=== PATIENT | female | born 1940 | race Caucasian/White ===

== ENCOUNTER 2019-12-03 12:51 | Outpatient (CLI) | payer MEDICARE, OTHER, SELFPAY ==
--- NOTE | ~2019-12-03 | XR_ITS ---
XR chest 2V 12/03/2019 13:54 Indication: Pneumonia. Procedure: 2 view chest Comparison: 08/16/2004 Findings: Heart size normal. Lingular airspace disease. There are emphysematous changes. No pleural e ffusion, edema or pneumothorax. Impression: 1: Lingular airspace disease, differential diagnosis includes atelectasis, scarring and pneumonia. Reviewed, dictated and finalized at location A. CAL RECEPTION SPECIALIST Impression: 1: Lingular airspace disease, differential diagnosis includes atelectasis, scar ring and pneumonia.
== END 2019-12-03 12:52 | disposition home or self-care (01) ==
LOC: ANHIMG 13:01
PROVIDERS: PCP Family Medicine; Visit Provider Family Medicine
DX: J18.9 Pneumonia, unspecified organism (principal); R91.8 Other nonspecific abnormal finding of lung field
CPT/HCPCS: 71046

== ENCOUNTER 2020-04-01 12:39 | Outpatient (CLI) | payer MEDICARE, OTHER, SELFPAY ==
--- NOTE | 2020-04-06 13:33 | WPDPFTINT ---
PFT Interpretation PFT Interpretation: DOS: 04/01/2020 REQUESTING: Dr Kelle Burch REASON FOR TESTING: Shortness of breath PULMONARY FUNCTION TESTS [place] results are reproducible. Spirometry: FB will be 1 moderately reduced 62%, 1.03 L. FVC is normal 89%. FEV 1% is decreased 47% consistent with airflow obstruction. There is a 25% increase in FEV1 after bronchodilator therapy. Lung volumes: TLC 118%, normal. RV increased 163%, severe air trapping. Airway resistance is 210%. Diffusion: DLCO severely decreased 23%. Flow volume loop: Severe scooping of the expiratory limb, improved with bronchodilator. IMPRESSION: Moderate obstructive ventilatory impairment with good response to bronchodilator, severe air trapping, increased airway resistance and extremely severe diffusion impairment. In the setting of tobacco use, this is consistent with moderate emphysema. Low diffusion is a feature of emphysema. Her DLCO is low even for emphysema. This may be due to another condition such as anemia, a secondary process such as ILD, or chronic thromboembolic disease. Ciara Hastings MD
== END 2020-04-01 12:40 | disposition home or self-care (01) ==
PROVIDERS: PCP Family Medicine; Visit Provider Family Medicine
DX: J44.9 Chronic obstructive pulmonary disease, unspecified (principal); R94.2 Abnormal results of pulmonary function studies
CPT/HCPCS: 94060; 94726; 94729

== ENCOUNTER 2020-06-08 10:00 | Outpatient (CLI) | payer MEDICARE, OTHER, SELFPAY ==
[2020-06-08] VITALS (7 sets, daily range): PULSE 66–90; O2SAT 85–91
--- NOTE | 2020-06-08 10:45 | HOMEO2EVAL ---
Home Oxygen Evaluation RC: Home Oxygen (O2) Evaluation Start: 06/08/20 10:39 Freq: Status: Active Protocol: RPE Activity Type Activity Date Activity User E-Sign Co-Sign Detail Recorded Client Recorded Date Recorded By Document 06/08/20 10:00 [email or web address] [email or web address] 06/08/20 10:45 DJO Document 06/08/20 10:05 [email or web address] [email or web address] 06/08/20 10:45 DJO Document 06/08/20 10:10 [email or web address] [email or web address] 06/08/20 10:45 DJO Document 06/08/20 10:15 [email or web address] [email or web address] 06/08/20 10:45 DJO Document 06/08/20 10:20 [email or web address] [email or web address] 06/08/20 10:45 DJO Document 06/08/20 10:25 [email or web address] [email or web address] 06/08/20 10:45 DJO Document 06/08/20 10:35 [email or web address] [email or web address] 06/08/20 10:45 DJO 06/08/20 06/08/20 06/08/20 10:00 10:05 10:10 Home O2 Evaluation Test Phase Resting Resting Resting Oxygen Delivery Room Air Nasal Cannula Nasal Cannula Oxygen Flow Rate (L/min) 1 2 Pulse Oximetry (90-100 %) 85 L 86 L 87 L Pulse Rate (60-100 beats/min) 76 74 72 Activity Tolerance Rating of Perceived Dyspnea (PD) Ambulation Distance (feet) Home Oxygen Evaluation Comments PT HAS HOME O2 AT 3LPM Treatment Charges O2 Evaluation 06/08/20 06/08/20 06/08/20 10:15 10:20 10:25 Home O2 Evaluation Test Phase Resting Exercise Exercise Oxygen Delivery Nasal Cannula Nasal Cannula Nasal Cannula Oxygen Flow Rate (L/min) 3 3 4 Pulse Oximetry (90-100 %) 91 87 L 90 Pulse Rate (60-100 beats/min) 68 88 90 Activity Tolerance Good Rating of Perceived Dyspnea (PD) +2 Mild, Some Difficulty, Noticeable to the Observer Ambulation Distance (feet) 750 Home Oxygen Evaluation Comments Treatment Charges 06/08/20 10:35 Home O2 Evaluation Test Phase Resting Oxygen Delivery Nasal Cannula Oxygen Flow Rate (L/min) 3 Pulse Oximetry (90-100 %) 90 Pulse Rate (60-100 beats/min) 66 Activity Tolerance Rating of Perceived Dyspnea (PD) Ambulation Distance (feet) Home Oxygen Evaluation Comments Treatment Charges
== END 2020-06-08 10:01 | disposition home or self-care (01) ==
LOC: ANHPFT 10:01
PROVIDERS: PCP Family Medicine; Visit Provider Nurse Practitioner Family
DX: J44.9 Chronic obstructive pulmonary disease, unspecified (principal)
CPT/HCPCS: 94618

== ENCOUNTER 2020-06-17 10:17 | Outpatient (CLI) | payer MEDICARE, OTHER, SELFPAY ==
--- NOTE | ~2020-06-17 | XR_ITS ---
EXAMINATION: XR barium swallow modified DATE: 06/17/2020 11:01 INDICATION: Dysphagia. TECHNIQUE: The patient was given barium-containing material of multiple consistencies to swallow by spencer mccarty speech pathologist while I performed fluoroscopy. Dose-area product was 1.059 Gy-cm2. 1.5 minutes fluoroscopy time FINDINGS: Oral Preparatory Stage: Normal Oral Stage: Normal Pharyngeal Phase: Normal Cervical/Esophageal Stage: Normal IMPRESSION: Modified esophagram findings as above. Please refer to the speech therapy report for spec [facility] recommendations. Reviewed, dictated and finalized at Location A. Reviewed, dictated and finalized at location A. IMPRESSION: Modified esophagram findings as above. Please refer to the speech t herapy report for specific recommendations.
--- NOTE | 2020-06-18 17:30 | STOPEVAL ---
MODIFIED BARIUM SWALLOW EVALUATION: Thank you for referring Mami Downing to [facility].? Attending Provider: MD MO Spence Outpatient Evaluation: [facility] Start: 06/18/20 17:16 Freq: Status: Active Protocol: Document 06/17/20 10:00 BECHERERT (Rec: 06/18/20 17:30 BECHERERT [email or web address]) Therapy Assessment Status Assessment Status Assessment Status Evaluation Outpatient Past Medical History Past Medical History Source of Past Medical History Patient Neurological History Hx Cerebrovascular Accident (CVA) Yes: TIA; on warfarin Hx Transient Ischemic Attacks (TIA) Yes Cardiovascular History Hx Cardiac Catheterization Yes Hx Hypercholesterolemia Yes Hx Hypertension Yes Hx Myocardial Infarction Yes Respiratory History Hx Pneumonia Yes Gastrointestinal History Hx Appendectomy Yes Genitourinary History Hx Genitourinary Disorders No Significant History Musculoskeletal History Hx Arthritis Yes Hematological History Hx Hematological Disorders No Significant History Endocrine History Hx Hypothyroidism Yes HEENT History Hx HEENT Disorders No Significant History Integumentary History Hx Skin Disorders No Significant History Reproductive History Hx Reproductive Disorders No Significant History Psychosocial History Hx Psychiatric Disorders No Significant History Pain History History of Any Previous or Ongoing No Significant History Instance of Pain Anesthesia History Hx Anesthesia Reactions No Significant History Prior Level of Function Prior Swallow Level Prior Intake Method Oral Prior Diet Regular (Level 7 Diet) Prior Liquid Consistency Thin (Level 0 Diet) Pain Assessment Timing of Pain Assessment Timing of Pain Assessment Assessment Self Report Self Report Pain Level 0 Pain Score Pain Score 0: Self Report Modified Barium Swallow Evaluation Recent Swallowing History Reports Dysphagia Yes: pills & food get stuck History of Dysphagia No Duration of Dysphagia 8 months Other Factors Impacting Dysphagia None History of Pneumonia Yes Reported Difficult Consistencies Pills,Solids Intake Method Prior to Swallow Oral Evaluation Diet Prior to Swallow Evaluation Regular, Level 7 Liquid Consistency Prior to Swallow Thin (0) Evaluation Consistency Thin Uncontrolled 2 Method of Presentation Straw Oral Preparatory Symptoms None Oral Phase Symptoms None Pharyngeal Phase Symptoms Within Functional Limits, Laryngeal Penetration Severity of Vallecular Residue None - 0% No Residue Severity of Pyriform Sinus Residue None - 0% No
== END 2020-06-17 10:18 | disposition home or self-care (01) ==
PROVIDERS: PCP Family Medicine; Visit Provider Internal Medicine Critical Care Medicine
DX: R13.10 Dysphagia, unspecified (principal)
CPT/HCPCS: 92611

== ENCOUNTER 2020-07-07 13:26 | Outpatient (CLI) | payer MEDICARE, OTHER, SELFPAY ==
--- NOTE | 2020-07-07 13:33 | ECHO_ITS ---
Patient Info Name: Mami Downing Age: 80 years : 1940 Gender: Female Ht: 63 in Wt: 171 lbs BSA: 1.88 m2 HR: 65 bpm BP: 136 / 72 mmHg Heart Rhythm: Sinus Arrhythmia Technical Quality: Good Exam Date: 07/07/2020 1:55 PM Exam Location: [facility] Pulmonary Patient Status: Outpatient Admit Date: 07/07/2020 Staff Ordering Physician: Ciara Hastings MD Email Specialist: John Adam RDCS Attending Provider: Ciara Hastings MD Referring Physician: Darling LOUIS; Exam Type: CA echo doppler color flow Study Info Indications R06.02 - Shortness of breath Complete two-dimensional, color flow and Doppler transthoracic echocardiogram is performed. History/Risk Factors Shortness of breath and hypoxemia. Summary 1. Complete two-dimensional, color flow and Doppler transthoracic echocardiogram is performed. 2. Left ventricular chamber dimension is normal. 3. Left ventricular systolic function is normal, estimated at 60-65%. 4. There is mildly increased left ventricular wall thickness. 5. The left ventricular diastolic function is grade I diastolic dysfunction. 6. E/e' 14 is mildly elevated. 7. Left atrial chamber dimension is mildly enlarged. 8. There is moderate aortic valve sclerosis. 9. There is trace aortic valve regurgitation. 10. There is trivial pericardial effusion. Left Ventricle E/e' 14 is mildly elevated. Left ventricular chamber dimension is normal. Left ventricular systolic function is normal, estimated at 60-65%. There is mildly increased left ventricular wall thickness. The left ventricular diastolic function is grade I diastolic dysfunction. Right Ventricle Right ventricular chamber dimension is normal. Right ventricular systolic function is normal. Left Atria Left atrial chamber dimension is mildly enlarged. Right Atria Right atrial chamber dimension is normal. Aortic Valve The aortic valve is trileaflet. There is moderate aortic valve sclerosis. There is no aortic valve stenosis. There is trace aortic valve regurgitation. Pulmonic Valve There is no pulmonic regurgitation. Mitral Valve There is no mitral valve stenosis. There is no mitral valve regurgitation. Tricuspid Valve There is no tricuspid valve regurgitation. Pericardium/Pleural There is trivial pericardial effusion. Inferior Vena Cava Normal inferior vena cava with >50% collapse upon inspiration consistent with normal right atrial pressure, 5 mmHg. Aorta The aortic root size at the sinus of Valsalva is normal. Left Ventricular Outflow Tract Name Value Normal LVOT 2D LVOT Diameter 2.0 cm LVOT Doppler LVOT Peak Gradient 10 mmHg LVOT Mean Gradient 5 mmHg LVOT VTI 45 cm LVOT VTI/AV VTI Ratio 0.8 LVOT Stroke Volume 140 ml LVOT CO 8.5 l/min LVOT CI 4.5 l/min/m2 Mitral Valve Name
== END 2020-07-07 13:27 | disposition home or self-care (01) ==
PROVIDERS: PCP Family Medicine; Visit Provider Internal Medicine Critical Care Medicine
DX: R09.02 Hypoxemia (principal); I35.1 Nonrheumatic aortic (valve) insufficiency
CPT/HCPCS: 93306

== ENCOUNTER 2020-12-09 11:00 | Emergency (ER) | payer MEDICARE, OTHER, SELFPAY ==
[2020-12-09] VITALS (21 sets, daily range): BP systolic 114–139; BP diastolic 62–83; PULSE 0–78; RESP 12–29; TEMP 36.7; O2SAT 90–97
--- NOTE | ~2020-12-09 | XR_ITS ---
EXAMINATION: XR chest 1V portable EXAM DATE: 12/09/2020 12:04 INDICATION: Shortness of breath, history of atrial fibrillation. TECHNIQUE: Portable AP frontal chest x-ray was obtained. Comparison is made to prior examination from 12/03/2019. FINDINGS: Moderate chronic hyperinflation. There is pulmonary vascular congestion. Some ill-defined b asilar opacities, possible developing basilar edema or pneumonia. Mid and upper lung zones are clear. No pneumothorax. The bones are osteopenic. There are bony degenerative changes. IMPRESSION: 1. Cardiomegaly, congestion. 2. Possible developing bibasilar edema or infection. Reviewed, dictated and finalized at location B. R SUPPLY ENGINEER
--- NOTE | ~2020-12-09 | CT_ITS ---
EXAMINATION: CTA chest PE protocol EXAM DATE: 12/09/2020 14:17 INDICATION: Shortness of breath, hemoptysis. TECHNIQUE: Spiral CTA of the chest (pulmonary arteries) was performed with 100 cc Omnipaque 350 intr avenous contrast injection. Images were acquired during the pulmonary arterial phase. Coronal maxi mum intensity projection 3D-reconstructions were created by the technologist on dedicated workstation . Axial, coronal and sagittal reformatted images were reviewed. The dose-length product (DLP) for t his examination was 544.01 mGy-cm. The exposure was tailored according to patient size (auto mA exp osure control), and iterative reconstruction (ASIR) was used as additional dose reduction technique. Comparison is made to prior examination from 11/12/2019. FINDINGS: The main, central pulmonary arteries are dilated which can indicate elevated pulmonary jennifer rial pressure, pulmonary arterial hypertension. There are no pulmonary emboli in the 1st through 3rd order (central and interlobar) pulmonary arteries. Some loss of attenuation in the segmental pulmon yenny arteries due to respiratory motion, but no intraluminal filling defects suspected. No thoracic aortic dissection. There is moderate emphysema. There is dependent predominant interlobular septal thickening which coul d be edema and/or atelectasis. Some component of interstitial lung disease is also possible. There is hyperinflation. Pleural-based lingular density likely scarring unchanged. There are no pleural or p ericardial effusions. Tracheobronchial tree is patent. Several borderline sized mediastinal lymph nodes unchanged, probably reactive. There is no pneumothorax. There is mild cardiomegaly. There is mild to moderate coronary arterial calcification, arterial sclerosis. Upper abdomen is unremarkab le. There is thoracic spondylosis without osteoblastic or osteolytic lesions identified. IMPRESSION: 1. No pulmonary emboli or confluent consolidation. 2. Dependent interlobular septal thickening, atelectasis an/or edema. Can't exclude some chronic int erstitial lung disease. 3. Cardiomegaly. Pulmonary arterial dilation. 4. Emphysema and hyperinflation. 5. Borderline mediastinal lymphadenopathy, probably reactive. Reviewed, dictated and finalized at location B. WEAVER IMPRESSION: 1. No pulmonary emboli or confluent consolidation. 2. Dependent interlobular septal thickening, atelectasis an/or edema. Can't ex clude some chronic interstitial lung disease. 3. Cardiomegaly. Pulmonary arterial dilation. 4. Emphysema and hyperinflation. 5. Borderline mediastinal lymphadenopathy, probably reactive.
--- NOTE | 2020-12-09 11:32 | ECG_ITS ---
Measurements Intervals [place] Rate: 71 P: 68 ME: 174 QRS: 23 QRSD: 93 T: 50 QT: 384 QTc: 418 Interpretive Statements SINUS RHYTHM LOW QRS VOLTAGE- LIMB LEADS BORDERLINE R WAVE PROGRESSION, ANTERIOR LEADS MINIMAL Q WAVES- INFERIOR LEADS BASELINE WANDER- I, II, AVR, AVF BORDERLINE ECG Electronically Signed On 12-09-2020 12:04:59 EXPOSURE MACHINE OPERATOR by Ben Odom D.O.
[2020-12-09 11:44] LABS: Basophils Absolute Auto 0.1 K/mm3 (0.0-0.1); Basophils Percent Auto 0.8 % (0.2-1.2); Eosinophils Absolute Auto 0.2 K/mm3 (0-0.3); Eosinophils Percent Auto 2.7 % (0-4.4); Hematocrit 39.1 % (37.0-47.0); Immature Granulocyte Absolute 0.04 K/mm3 (0.00-0.031); Immature Granulocyte Percent A 0.5 % (0-0.5); Lymphocytes Absolute Auto 1.76 K/mm3 (0.9-3.2); Lymphocytes Percent Auto 20.7 % (18.3-44.2); Mean Corpuscular HGB Conc 33.2 g/dl (32-36); Mean Corpuscular Hemoglobin 33.2 pg (26-34); Mean Platelet Volume 10.2 fl (7.4-10.4); Monocytes Absolute Auto 0.8 K/mm3 (0.1-0.6); Monocytes Percent Auto 9.2 % (2.6-8.5); Neutrophils Absolute Auto 5.6 K/mm3 (1.3-6.7); Neutrophils Percent Auto 66.1 % (45.5-73.1); Platelet Count Result 251 k/mm3 (150-375); Red Blood Count 3.91 M/mm3 (4.2-5.4); Red Cell Distribution Width 13.1 % (11.5-14.5); White Blood Count 8.5 K/mm3 (4.5-10.0)
[2020-12-09 11:54] LABS: INR 2.5; Prothrombin Time 27.5 Seconds (11.1-14.7)
[2020-12-09 11:56] LABS: Partial Thromboplastin Time 49.1 SECONDS (22.3-36.8)
[2020-12-09 12:02] LABS: D Dimer 0.44 ug/mL (<0.48)
[2020-12-09 12:28] LABS: Alanine Aminotransferase 17 U/L (4-35); Albumin Level 3.8 g/dL (3.5-5.1); Alkaline Phosphatase 107 U/L (38-126); Anion Gap 6 mmol/L (8-16); Aspartate Amino Transferase 33 U/L (14-36); Bilirubin,Total 0.8 mg/dL (0.2-1.3); Blood Urea Nitrogen 14 mg/dL (7-17); Calcium 9.8 mg/dL (8.4-10.2); Carbon Dioxide 28 mmol/L (22-30); Chloride 106 mmol/L (98-107); Estimated Glomerular Filt Rate 53; Glucose 117 mg/dL (65-105); Potassium 4.5 mmol/L (3.4-5.0); Sodium 140 mmol/L (137-145)
[2020-12-09 12:40] LABS: NT Pro B Type Natriuretic Pept 835 PG/ML (5-100)
--- NOTE | 2020-12-09 13:01 | ED.SOB ---
HPI - SOB/Dyspnea General Chief Complaint: Shortness of Breath/Dyspnea Stated Complaint: SHORT OF BREATH ON O2 Time Seen by Provider: 12/09/20 11:09 Source: patient Mode of arrival: ambulatory Limitations: no limitations History of Present Illness HPI Narrative: Patient is an 80 year old female with history of COPD, oxygen dependence 3L NC, atrial fibrillation who presents for evaluation of worsening shortness of breath. Patient reports that she has been having worsening shortness of breath over past 2-3 months. She reports worsening cough. She is short of breath with exertion for 3 months. She denies fever or chills. She denies chest pain. She reports she is coughing up a small amount of blood due to her nose being dry from oxygen. Related Data Allergies Allergy/AdvReac Type Severity Reaction Status Date / Time doxycycline Allergy Unknown Hives Verified 09/29/20 14:13 indomethacin Allergy Unknown Unknown Verified 09/29/20 14:13 Review of Systems Review of Systems: All systems reviewed & are unremarkable except as noted in HPI and below Constitutional: Constitutional: Denies chills and Denies fever(s) ENT: Reports epistaxis and Denies nasal congestion Cardiovascular: Cardiovascular: Denies chest pain Respiratory: Respiratory: Reports cough and Reports dyspnea (chronic with exertion) Gastrointestinal: Gastrointestinal: Denies abdominal pain, Denies diarrhea, Denies nausea and Denies vomiting Genitourinary: Genitourinary: Denies hematuria Neurologic: Denies headache(s) FOR[facility]LY [facility], [facility] Past Medical History Medical History (Updated 12/09/20 @ 15:48 by Rachael Curran MD) A-fib Anxiety Atrial fibrillation Cataracts, bilateral Chronic hypoxemic respiratory failure Dependence on supplemental oxygen Difficulty swallowing Dilatation of pulmonic artery Foot fracture, right GERD (gastroesophageal reflux disease) H/O: HTN (hypertension) History of heart attack History of pneumonia Hx of transient ischemic attack (TIA) Hypercholesteremia Hypothyroid Nocturnal leg cramps Osteomyelitis Shingles Surgical History Surgical History H/O breast biopsy History of appendectomy History of bladder surgery Hx of bilateral cataract extraction Hx of cardiac cath Hx of tubal ligation Family History Family History Father Acute myocardial infarction Grandparent Acute myocardial infarction Sibling Acute myocardial infarction Social History Social History Smoking packs per day: 0.5 Smoking cigarettes per day: 10.0 Years smoked: 60 Smoking pack-years: 30.00 Smoking status: Heavy tobacco smoker Tobacco type: cigarettes Second hand tobacco smoke exposure: Yes Smoking end date: 11/06/19 Alcohol intake: never Substance use: never Gender identity (if verbalized by the patient): Female Spiritual care concerns: No Agree to blood products: Yes Exam Const: General: no acute distress and alert Orientation/consciousness: patient oriented x3 HENMT: Head: normocephalic and atraumatic General nose exam: Other nasal findings present (dry nasal discharge, crusted speck of blood in left nare) Face and sinus: face symmetric Mouth: Yes oropharynx normal Eyes: EOM: EOMs intact bilaterally Chest: Chest palpation & inspection: normal inspection of the chest Resp: Effort & Inspection: normal respiratory effort and no retractions Auscultation: clear to auscultation bilaterally Cardio: Rate: regular rate Rhythm: regular rhythm Heart sounds: no murmurs GI: GI Palp: Yes Soft to palpation, No Tenderness to palpation present (GI) and No Guarding due to palpation present (GI) Auscultation: normal bowel sounds Skin: General skin exam: normal color Rashes: no rashes Neuro: General: patient oriented x3, moves all extremities and CN's I
[2020-12-09 13:47] LABS: Alveolar/Arterial O2 Gradient 104.1 mmHg; Base Excess ABG -0.5 mEq/l (+/-2.0); Fractional Inspired Oxygen 32 %; HCO3 ABG 24.1 mEq/l (22.0-26.0); Oxygen Content ABG 18.3 %vol (16.0-22.0); Oxygen Saturation ABG 95.6 % (95.0-100.0); Oxyhemoglobin 94.3 % THb (90.0-100.0); PCO2 ABG 39.6 mmHg (35.0-45.0); PO2 ABG 77.7 mmHg (80.0-100.0); PO2 FiO2 Ratio Arterial Blood 2.43 %; Total Hemoglobin 13.8 g/dL (12.0-18.0); pH ABG 7.403 (7.350-7.450)
[2020-12-09 13:50] LABS: Device NASAL CANNULA; Modified Allen's Test Pass; Site Drawn RIGHT RADIAL
== END 2020-12-09 16:16 | disposition home or self-care (01) ==
PROVIDERS: Emergency Provider General Practice
DX: J96.11 Chronic respiratory failure with hypoxia (principal); Z99.81 Dependence on supplemental oxygen; J44.9 Chronic obstructive pulmonary disease, unspecified; I48.91 Unspecified atrial fibrillation; F41.9 Anxiety disorder, unspecified; K21.9 Gastro-esophageal reflux disease without esophagitis; I10 Essential (primary) hypertension
CPT/HCPCS: 36415; 36600; 71045; 71275; 80053; 82805; 83880; 84484; 85025; 85380; 85610; 85730; 87040; 87804; 93005; 99284; Q9967

== ENCOUNTER 2021-02-05 12:34 | Outpatient (CLI) | payer MEDICARE, OTHER, SELFPAY ==
[2021-02-05] VITALS (8 sets, daily range): O2SAT 80–90
--- NOTE | 2021-02-05 13:04 | ECHO_ITS ---
Patient Info Name: Mami Downing Age: 81 years : 1940 Gender: Female Ht: 64 in Wt: 171 lbs BSA: 1.90 m2 HR: 77 bpm BP: 146 / 88 mmHg Technical Quality: Good Exam Date: 02/05/2021 2:07 PM Exam Location: [facility] Pul[facility] Patient Status: Outpatient Admit Date: 02/05/2021 Staff Ordering Physician: Gerson Cantu MD Electrolysis Needle Operator: Gomez Naylor RDCS, RT Attending Provider: Gerson Cantu MD Referring Physician: Pepe BORJA; Exam Type: CA echo doppler w bubble study Study Info Indications J96.91 - Respiratory failure, unspecified with hypoxia Complete two-dimensional, color flow and Doppler transthoracic echocardiogram is performed with agitated saline. Contrast/Agitated Saline Contrast/Ag. Saline: Agitated Saline Amount: --- ml Administered By: Ileana Shin, RN Summary 1. Left ventricular chamber dimension is normal. 2. Left ventricular systolic function is normal, estimated at 60-65%. 3. There is moderately increased left ventricular wall thickness. 4. The left ventricular diastolic function is grade I diastolic dysfunction. 5. E/e' 15 is elevated. 6. Right ventricular chamber dimension is moderately enlarged. 7. Right ventricular systolic function is mildly reduced, however, TAPSE is normal at 1.9 cm.. 8. Right atrial chamber dimension is mildly enlarged. 9. There is minimal mild aortic valve stenosis based on a peak velocity of 188 cm/s, mean gradient of 8 mmHg, and aortic valve area of 2.3 cm2. 10. There is moderate aortic valve sclerosis. 11. There is mild tricuspid valve regurgitation. 12. Severe pulmonary hypertension, estimated pulmonary arterial systolic pressure is 95 mmHg. 13. There is mild pulmonic regurgitation. 14. Dilated inferior vena cava with >50% collapse upon inspiration consistent with elevated right atrial pressure, 10 mmHg. 15. There is trivial pericardial effusion. Left Ventricle E/e' 15 is elevated. Left ventricular chamber dimension is normal. Left ventricular systolic function is normal, estimated at 60-65%. There is moderately increased left ventricular wall thickness. The left ventricular diastolic function is grade I diastolic dysfunction. Right Ventricle Right ventricular systolic function is mildly reduced, however, TAPSE is normal at 1.9 cm.. Right ventricular chamber dimension is moderately enlarged. Left Atria Left atrial chamber dimension is normal. Right Atria Agitated saline injection with and without valsalva maneuver opacified right sided cardiac chambers without shunt to left sided cardiac chambers. Right atrial chamber dimension is mildly enlarged. Atrial Septum Intact interatrial septum visualized by agitated saline imaging. Aortic Valve The aortic valve is not well visualized. Cannot determine number of aortic valve leaflets. There is minimal mild aortic valve stenosis based on a peak velocity of 188 cm/s, mean gradient of 8 mmHg, and aortic valve area of 2.3 cm2. There is moderate aortic valve sclerosis. There is no aortic valve regurgitation. Pulmonic Valve There is mild pulmonic regurgitation. Mitral Valve There is no mitral valve stenosis. There is no mitral valve regurgitation. Tricuspid Valve There is mild tricuspid valve regurgitation. Severe pulmonary hypertension, estimated pulmonary arterial systolic pressure is 95 mmHg. Pericardium/Pleural There is trivial pericardial effusion. Inferior Vena Cava Dilated infe
--- NOTE | 2021-02-05 14:13 | PCRCNOTE ---
Pt requires 3Liter Oxymizer resting and 6Liter Oxymizer with exertion
--- NOTE | 2021-02-05 14:31 | HOMEO2EVAL ---
Home Oxygen Evaluation RC: Home Oxygen (O2) Evaluation Start: 02/05/21 14:07 Freq: Status: Active Protocol: RPE Activity Type Activity Date Activity User E-Sign Co-Sign Detail Recorded Client Recorded Date Recorded By Document 02/05/21 13:30 MARII [email or web address] 02/05/21 14:13 MARII Document 02/05/21 13:31 MARII [email or web address] 02/05/21 14:13 MARII Document 02/05/21 13:32 MARII [email or web address] 02/05/21 14:13 MARII Document 02/05/21 13:34 MARII [email or web address] 02/05/21 14:13 MARII Document 02/05/21 13:40 MARII [email or web address] 02/05/21 14:13 MARII Document 02/05/21 13:41 MARII [email or web address] 02/05/21 14:13 MARII Document 02/05/21 13:45 MARII [email or web address] 02/05/21 14:13 MARII Document 02/05/21 13:50 MARII [email or web address] 02/05/21 14:13 MARII 02/05/21 02/05/21 02/05/21 13:30 13:31 13:32 Home O2 Evaluation Test Phase Resting Resting Resting Oxygen Delivery Room Air Oxymizer Oxymizer Oxygen Flow Rate (L/min) 1 2 Pulse Oximetry (90-100 %) 80 L 80 L 86 L Treatment Charges O2 Evaluation - Outpatient 02/05/21 02/05/21 02/05/21 13:34 13:40 13:41 Home O2 Evaluation Test Phase Resting Exercise Exercise Oxygen Delivery Oxymizer Oxymizer Oxymizer Oxygen Flow Rate (L/min) 3 4 5 Pulse Oximetry (90-100 %) 89 L 85 L 86 L Treatment Charges 02/05/21 02/05/21 13:45 13:50 Home O2 Evaluation Test Phase Exercise Resting Oxygen Delivery Oxymizer Oxymizer Oxygen Flow Rate (L/min) 6 3 Pulse Oximetry (90-100 %) 89 L 90 Treatment Charges
--- NOTE | 2021-02-05 14:32 | PCRCNOTE ---
Pt desats with current home O2 set up, POC on 4L pulse dose. She was 82% when she was in dept. for eval. on 4L home setting. She is going to require tanks for exertion with an oxymixer to keep sats approx 90%. Will contact office to relay the info.
== END 2021-02-05 12:35 | disposition home or self-care (01) ==
LOC: ANHPFT 12:35
PROVIDERS: PCP Physician Assistant; Visit Provider Internal Medicine Pulmonary Disease
DX: R06.02 Shortness of breath (principal); I51.7 Cardiomegaly; R93.1 Abnormal findings on diagnostic imaging of heart and coronary circulation
CPT/HCPCS: 93306; 94618; 96375